=== PATIENT | female | born 1965 | race Caucasian/White ===

== ENCOUNTER 2025-01-17 14:28 | Emergency (ER) | payer MEDICARE, OTHER, SELFPAY ==
--- OUTSIDE RECORDS SUMMARY | 2025-01-17 14:31 | XMS_ITS ---
Author Organization [facility] Building [address] Address [address] [place] [address] Care Team Providers Care Multiple Spindle Router Operator Name Role Phone Sirena Germain NP Unavailable [phone] Rishi Whitaker MD Unavailable [phone] Sidra Mansfield NP Primary Care Provider [phone] Active Problems Problem Noted Date Diagnosed Date Scarring, hypertrophic 09/09/2024 S/P brachioplasty 09/09/2024 Scar irritation 09/09/2024 Vaginal discharge 07/19/2024 Assessment & Plan (07/19/2024 8:21 PM CDT): Pelvic exam completed in office, patient tolerated procedure well. Vaginal swab obtained vaginitis panel, GC, and chlamydia testing ordered. Wet mount side prepared from vaginal swab, clue cells noted on slide. Patient prescribed Flagyl for bacterial vaginosis. Vaginal dryness 07/04/2024 Assessment & Plan (07/19/2024 8:19 PM CDT): Chronic, due to Aromasin use. Patient prescribed Premarin vaginal cream 0.5 g by her oncology to treat her chronic vaginal dryness. Assessment & Plan (07/04/2024 7:58 AM CDT): Chronic, due to Aromasin use. Patient prescribed Premarin vaginal cream 0.5 g by her oncology to treat her chronic vaginal dryness. Chronic pain of both knees 07/04/2024 Assessment & Plan (07/04/2024 7:58 AM CDT): Chronic, patient to continue on Celebrex 200 mg BID PRN. Bilateral knee xrays ordered. Patient to be contacted once xray results are obtained. Primary insomnia 05/28/2024 Assessment & Plan (06/01/2024 4:07 PM CDT): Uncontrolled. Patient to discontinue hydroxyzine 50 mg. Patient to continue nightly sleep hygiene. Patient prescribed Trazodone 50 mg nightly. Patient provided with education on medication administration and potential side effects. Patient to follow up in one month. History of breast cancer 11/30/2023 Assessment & Plan (07/04/2024 7:54 AM CDT): Patient currently taking Aromasin 25 mg daily. Patient currently following with oncology and breast surgeon. Has underwent mastectomy and breast reconstruction. Assessment & Plan (06/01/2024 4:03 PM CDT): Patient currently taking Aromasin 25 mg daily. Patient currently following with oncology and breast surgeon. Has underwent mastectomy and breast reconstruction. Assessment & Plan (11/30/2023 3:35 PM CDT): Patient currently taking Aromasin 25 mg daily. Patient currently following with oncology and breast surgeon. Has underwent mastectomy and breast reconstruction. Murmur 05/01/2023 Personal history of colonic polyps 04/20/2023 Routine medical exam 04/20/2023 Assessment & Plan (06/01/2024 4:05 PM CDT): CBC, CMP, lipid panel ordered. Patient underwent mastectomy and breast reconstruction. Pap last completed: 04/2023 repeat in 2 years. Colonoscopy last completed: 01/2024 Vaccinations: Shingrix, Prevnar, Flu vaccines UTD. Repeat wellness exam in one year. 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 01/08/2023 History of breast reconstruction 01/08/2023 Acquired absence of bilateral breasts and nipple s 01/08/2023 Breast cancer in female 03/27/2022 Iron deficiency anemia 09/28/2021 Malignant neoplasm of lower- inner quadrant of left breast in female, estrogen receptor positive 08/25/2021 Malignant neoplasm of left b reast in female, estrogen receptor positive 05/17/2020 HER2-positive carcinoma of left breast (CMS/HCC) 05/17/2020 Cancer Staging:Clinical: Unsigned Assessment & Plan (05/01/2023 1:58 PM CDT): Patient is stable and followed by Oncology Assessment & Plan (01/23/2023 11:25 AM PHILATELIC CONSULTANT): Patient is currently seeing Oncology and being treated Assessment & Plan (12/12/2021 1:52 PM PHILATELIC CONSULTANT): Followed by oncology Assessment & Plan (10/25/2020 2:00 PM CDT): Patient had bilateral mastectomies currently going through treatment she appears to be in good humor will continue to follow Assessment & Plan (05/24/2020 11:18 AM CDT): Patient is pending bilateral mastectomy at that time it will be determine what treatment should be going through s/p C5-6 and C6-7 ACDF in 04/201904/14/2020 Mild episode of recurrent major depressive disor jacob 03/18/2020 Assessment & Plan (06/01/2024 4:08 PM CDT): Chronic, controlled with Wellbutrin 450 mg daily. Follow up in 6 months. Assessment & Plan (11/30/2023 3:33 PM CDT): Chronic, controlled with Wellbutrin 450 mg and Zoloft 100 mg daily. Follow up in 6 months. Assessment & Plan (01/23/2023 11:24 AM PHILATELIC CONSULTANT): This is in fair control again she has a lot of things going on there is no SI HI as I decreased his Zoloft if I need to bring something on board I will and we did discuss signs and symptoms to monitor for. Assessment & Plan (03/18/2020 2:49 PM PHILATELIC CONSULTANT): Images from the original note were not included. Was doing well on wellbutrin, now not so ggood,w ill increase to 300 in am and 150 pm\\The pharmacologic and nonpharmacologic treatment of anxiety/depression were discusses with the patient. Included was a discussion of the current treatment regimens and their proposed mechanism of action concerning brain chemistry. Discussed the role of counseling as an adjunct to medications should we agree to pursue this. The patient is non-suicidal, and agrees to inform us of any change in this status follow up in 4-6 weeks- sooner if any problems Bilateral carpal tunnel syndrome 01/06/2020 Assessment & Plan (01/06/2020 4:32 PM PHILATELIC CONSULTANT): This is uncontrolled, Seen neurology, failed conservative therapy, had EMG is, sending to Ortho Attention deficit disorder (ADD) without hyperac tivity 01/06/2020 Assessment & Plan (07/04/2024 7:55 AM CDT): Chronic, controlled with Adderall 20 mg daily. Follow up in 6 months. Assessment & Plan (06/01/2024 4:00 PM CDT): Chronic, controlled with Adderall 20 mg daily. Follow up in 6 months. Assessment & Plan (11/28/2023 2:34 PM CDT): Chronic, controlled with Adderall 20 mg daily. Follow up in 6 months. Assessment & Plan (07/20/2021 11:19 AM CDT): Controlled with meds Assessment & Plan (10/25/2020 1:59 PM CDT): Given patient's current cancer treatment with currently not treating the Assessment & Plan (05/24/2020 11:17 AM CDT): This is currently controlled current medications will continue to follow if anxiety persists we may need to consider decreasing the dose or stopping Assessment & Plan (03/18/2020 2:46 PM PHILATELIC CONSULTANT): Will to change medications so she can get at base Assessment & Plan (01/06/2020 4:34 PM PHILATELIC CONSULTANT): This is not totally controlled patient was started on the 30s and it is improving am going to increase her medicine to 40 mg and she will give me an update in 4-6 weeks Osteoarthritis of finger of left hand 09/01/2019 Mucous cyst of digit of left hand 09/01/2019 History of pulmonary embolism 04/07/2019 Assessment & Plan (10/25/2020 2:00 PM CDT): Patient is currently stable with no recurrence will continue to follow Assessment & Plan (05/24/2020 11:18 AM CDT): This is old and patient has not had any recurrence will continue to follow Assessment & Plan (01/06/2020 4:33 PM PHILATELIC CONSULTANT): This was felt to be due to his severe infection last year there has been no recurrence patient is stable will continue to follow Cervical spondylosis with radiculopathy 04/07/19 Assessment & Plan (06/01/2024 4:01 PM CDT): Chronic, pain is currently controlled with Celebrex 200 mg BID, flexeril 10 mg PRN, and gabapentin 600 mg TID. Follow up in 6 months. Assessment & Plan (11/30/2023 3:30 PM CDT): Chronic, pain is currently controlled with Celebrex 200 mg BID, flexeril 10 mg PRN, and gabapentin 600 mg TID. Follow up in 6 months. Fibromyalgia 07/03/2018 Assessment & Plan (07/04/2024 7:55 AM CDT): Chronic, pain is currently controlled with Celebrex 200 mg BID, flexeril 10 mg PRN, and gabapentin 600 mg TID. Follow up in 6 months. Assessment & Plan (06/01/2024 4:01 PM CDT): Chronic, pain is currently controlled with Celebrex 200 mg BID, flexeril 10 mg PRN, and gabapentin 600 mg TID. Follow up in 6 months. Assessment & Plan (11/30/2023 3:31 PM CDT): Chronic, pain is currently controlled with Celebrex 200 mg BID, flexeril 10 mg PRN, and gabapentin 600 mg TID. Follow up in 6 months. Assessment & Plan (05/01/2023 1:57 PM CDT): This is currently controlled will continue to monitor Assessment & Plan (12/12/2021 1:52 PM PHILATELIC CONSULTANT): Flaring and want to try meds Assessment & Plan (07/20/2021 11:18 AM CDT): Encourage exercise Assessment & Plan (05/24/2020 11:17 AM CDT): Patient has been taking the Cymbalta for a long time she is not really sure if it is helping were going to try to slowly taper her off Assessment & Plan (03/18/2020 2:45 PM PHILATELIC CONSULTANT): On numerous medications and seeing specialistm, will wait till work up is over Assessment & Plan (01/06/2020 4:32 PM PHILATELIC CONSULTANT): This appears to be fairly stable will continue to follow patient is taking Cymbalta Assessment & Plan (07/03/2018 11:57 PM CDT): Holding Cymbalta due to renal function. Continue Elavil. Patient advised to discuss with PCP regarding options for fibromyalgia if renal function does not recover. Mild intermittent asthma 07/03/2018 Assessment & Plan (06/01/2024 4:07 PM CDT): Chronic, controlled Symbicort and albuterol inhaler PRN. Assessment & Plan (11/28/2023 2:42 PM CDT): Chronic, controlled Symbicort and albuterol inhaler PRN. Assessment & Plan (05/01/2023 1:57 PM CDT): This is mild/intermittent and controlled with p.r.n. inhalers Assessment & Plan (01/23/2023 11:24 AM PHILATELIC CONSULTANT): This is mild, intermittent and well controlled Assessment & Plan (07/20/2021 11:18 AM CDT): Controlled with as needed inhalers Assessment & Plan (10/25/2020 2:00 PM CDT): This is mild intermittent and well controlled with current meds Assessment & Plan (05/24/2020 11:18 AM CDT): This is currently controlled with p.r.n. inhaler will continue to follow Assessment & Plan (03/18/2020 2:45 PM PHILATELIC CONSULTANT): Mild intermittent inhalers Assessment & Plan (01/06/2020 4:33 PM PHILATELIC CONSULTANT): This is controlled with p.r.n. inhalers Assessment & Plan (07/03/2018 11:56 PM CDT): P.r.n. Albuterol Generalized anxiety disorder 03/26/2018 Assessment & Plan (07/04/2024 7:56 AM CDT): Chronic,improving continue on Wellbutrin 450 mg daily and Trazodone 50 mg nightly. Follow up in 6 months to reassess anxiety symptoms. Assessment & Plan (06/01/2024 4:02 PM CDT): Chronic, uncontrolled to continue on Wellbutrin 450 mg daily. Patient to discontinue Zoloft 100 mg and begin Trazodone 50 mg nightly. Follow up in 1 month to reassess anxiety symptoms. Assessment & Plan (11/28/2023 2:44 PM CDT): Chronic, controlled with Wellbutrin 450 mg and Zoloft 100 mg daily. Follow up in 6 months. Assessment & Plan (05/01/2023 1:57 PM CDT): This is well controlled with no SI HI will continue to monitor Assessment & Plan (01/23/2023 11:23 AM PHILATELIC CONSULTANT): This is not in excellent control because of all patient's healthcare issues she is also upset that she is gained weight some going to decrease her Zoloft to 50 mg daily for 2-3 weeks then every other day if her anxiety and depression get worse I can add something to help her out we had a long discussion about this she verbalized agreement and understanding. There is no SI HI Assessment & Plan (12/12/2021 1:52 PM PHILATELIC CONSULTANT): Increase to 100, no si/hi Assessment & Plan (07/20/2021 11:19 AM CDT): Controlled with meds Assessment & Plan (10/25/2020 1:59 PM CDT): We have tapered her off the Cymbalta she is going to go to every other day for the next week as we bring her back on to some Zoloft which were hope in will work in conjunction with Wellbutrin to improve her anxiety patient is going to update me in a few weeks Assessment & Plan (05/24/2020 11:18 AM CDT): This is increased with recent diagnosis of breast cancer am going to increase her Wellbutrin to 300 of the XL she will give me an update she may use her hydroxyzine as needed I am willing to refill the script Assessment & Plan (03/18/2020 2:45 PM PHILATELIC CONSULTANT): Images from the original note were not included. The pharmacologic and nonpharmacologic treatment of anxiety/depression were discusses with the patient. Included was a discussion of the current treatment regimens and their proposed mechanism of action concerning brain chemistry. Discussed the role of counseling as an adjunct to medications should we agree to pursue this. The patient is non-suicidal, and agrees to inform us of any change in this status follow up in 4-6 weeks- sooner if any problems Assessment & Plan (01/06/2020 4:33 PM PHILATELIC CONSULTANT): This appears to be well controlled, will continue to follow Assessment & Plan (07/03/2018 11:56 PM CDT): Continue Elavil. Patient is on Cymbalta however due to renal function will need to hold. Sleep apnea Assessment & Plan (06/01/2024 1:55 PM CDT): Chronic, controlled with nightly CPAP use. Assessment & Plan (11/28/2023 2:37 PM CDT): Chronic, controlled with nightly CPAP use. Assessment & Plan (01/23/2023 11:24 AM PHILATELIC CONSULTANT): Continue CPAP Assessment & Plan (03/18/2020 2:46 PM PHILATELIC CONSULTANT): Continue c-pap Assessment & Plan (01/06/2020 4:33 PM PHILATELIC CONSULTANT): Patient is currently sleeping on CPAP Current Treatment and Therapy Plans No current plan information found. Past Treatment and Therapy Plans Line Care Plan Name Start Date Discontinue Date Treatment Medications Discontinue Reason Plan Provider IV Maintenance Therapy Plan 09/07/2020 01/10/2023 No medications scheduled. Orders Jeana Linton NP Oncology Chemotherapy Treatment Plan Name Start Date Discontinue Date Treatment Medications Discontinue Reason Plan Provider Cycles PACLItaxel / Trastuzumab Weekly x 4 Cycles then Trastuzumab Q21 Days - Breast 1 09/19/2021 PACLItaxel (TAXOL) IVPB in 250 mLtrastuzumab (HERCEPTIN) IVPB Therapy Complete Mega River Jr., MD 17 of 17 cycles started Oncology Supportive Care Therapy Plan Plan Name Start Date Discontinue Date Treatment Medications Discontinue Reason Plan Provider IV MAINTENANCE THERAPY PLAN 09/27/2021 04/07/2022 No medications scheduled. Therapy Complete Mega River Jr., MD IV MAINTENANCE THERAPY PLAN 08/31/2020 09/27/2021 No medications scheduled. Therapy Complete Gomez Larsen MD PhD Lifetime Dose Tracking * Chemical Lifetime Dose Automatic Entry Manual Entr y Fluoro Time 2.229 minutes 2.229 minutes 0 minutes Air kerma at the reference point (Ka,r) 11.814 mGy 1 1.814 mGy 0 mGy DLP 2,056 mGycm 2,056 mGycm 0 mGycm Resolved Problems Problem Noted Date Diagnosed Date Resolved Date Encounter for screening colonoscopy 04/20/2023 11/30/2023 Severe obesity (BMI 35.0-35. 9 with comorbidity) 04/30/2022 11/28/2023 Breast asymmetry 08/26/2021 11/28/2023 Acute non-recurrent maxillary sinusitis 07/20/2021 11/30/2023 Sore in nose 10/25/2020 11/28/2023 Routine general medical exam ination at a [facility] 01/05/2020 11/30/2023 Assessment & Plan (05/01/2023 1:58 PM CDT): Healthcare maintenance updated Assessment & Plan (01/23/2023 11:24 AM PHILATELIC CONSULTANT): Healthcare maintenance updated, colonoscopy ordered, please schedule Pap smear Assessment & Plan (10/25/2020 2:00 PM CDT): Healthcare maintenance updated Assessment & Plan (01/06/2020 4:33 PM PHILATELIC CONSULTANT): Healthcare maintenance updated, immunizations discussed, mammogram ordered. Patient will schedule a Pap smear Left hand pain 09/01/2019 11/30/2023 Hyponatremia 07/04/2018 01/06/2020 Assessment & Plan (07/04/2018 12:11 AM CDT): Suspect it is due to poor p.o. Intake and or pain. Patient is receiving IV fluids. Will continue to monitor. Bandemia 07/03/2018 06/01/2024 Assessment & Plan (07/03/2018 11:58 PM CDT): No obvious sources of infection other than possible underlying pneumonia. Patient also has toxic granulation. Blood cultures were drawn. Will continue with antibiotics for the time being. Acute renal failure 07/03/2018 11/30/19 Assessment & Plan (10/25/2020 1:59 PM CDT): This is slowly improving we have her off all anti-inflammatories will continue to monitor Assessment & Plan (05/24/2020 11:17 AM CDT): This is now resolved will continue to follow Assessment & Plan (01/06/2020 4:31 PM PHILATELIC CONSULTANT): This has resolved patient is stable will continue to follow Assessment & Plan (07/04/2018 12:23 AM CDT): Suspected to be acute. Patient denies any prior history of kidney disease. Patient has been taking ibuprofen daily for years for pain. Patient is receiving IV fluids. Will check a PVR and UA with micro. Will order ultrasound of the kidneys. Will consult Nephrology. Avoid any nephrotoxins. BMI 32.0-32.9,adult 03/26/2018 11/30/19 Sepsis 11/28/2023
--- OUTSIDE RECORDS SUMMARY | 2025-01-17 14:31 | XMS_ITS | Encounter Summary ---
Author Organization [facility] Healthcare Address [address] [place] [address] Care Team Providers Care Hat Checker Name Role Phone Sirena Germain AUDIOVISUAL PRODUCTION SPECIALIST Unavailable [phone] Dain Mckeon Primary Care Provider [phone] Gomez Larsen MD PhD Unavailable [phone] Perico River MD, Mega Unavailable [phone] Jeana Linton AUDIOVISUAL PRODUCTION SPECIALIST Unavailable [phone] Rishi Whitaker MD Unavailable [phone] Sidra Mansfield AUDIOVISUAL PRODUCTION SPECIALIST Primary Care Provider [phone] Sidra Mansfield AUDIOVISUAL PRODUCTION SPECIALIST Primary Care Provider [phone] Encounter Details Date Type Department Care Team (Late st Contact Info) Description 10/17/2019 Telephone [facility] [address] [place] [address] Antonio Taylor, RT Social History Tobacco Use Types Packs/Day Years Used Date Smoking Tobacco: Never Smokeless Tobacco: Never Alcohol Use Standard Drinks/Week Comments Yes 0 (1 standard drink = 0.6 oz pur e alcohol) occassional PHQ-2 Answer Date Recorded PHQ-2 Score 1 09/27/2018 Comments No Sex and Gender Information Value Date Recorded Sex Assigned at Not on file Legal Sex Female 4:12 PM WORKERS COMPENSATION CLAIMS SPECIALIST Gender Identity Female 05/18/2020 5:32 PM CDT Sexual Orientation Straight 12/23/2019 3: 46 PM WORKERS COMPENSATION CLAIMS SPECIALIST documented as of this encounter Plan of Treatment Not on file documented as of this encounter Visit Diagnoses Not on filedocumented in this encounter Care Teams Hat Checker Relationship Specialty Start Date End Date Dain Mckeon PA [address] [place] [address] PCP - General Family Medicine 01/06/20 11/18/23 Sidra Mansfield, AUDIOVISUAL PRODUCTION SPECIALIST [address] [place] [address] [id number] PCP - General Family Medicine 11/19/23 12/24/23 Sidra Mansfield, AUDIOVISUAL PRODUCTION SPECIALIST [address] [place] [address] [id number] PCP - General Family Medicine 12/25/23 Sirena Germain AUDIOVISUAL PRODUCTION SPECIALIST [address] [place] [address] [place] [address] 04/18/18 Gomez Larsen MD PhD [address] [place] [address] [place] [address] Medical Oncologist/Agricultural Service Technician Medical Oncology 08/10/20 02/23/21 Mega River Jr., MD [address] [place] [address] [place] [address] Medical Oncologist/Agricultural Service Technician Medical Oncology 02/24/21 03/28/22 Jeana Linton, ALICIA [address] [place] [address] [id number] Nurse Practitioner Medical Oncology 03/29/22 08/10/22 Rishi Whitaker MD [address] [place] [address] MEDICAL ONCOLOGY, [place] [id number] Consulting Physician Hematology and Oncology 08/11/22 documented as of this encounter
--- OUTSIDE RECORDS SUMMARY | 2025-01-17 14:31 | XMS_ITS | Clinical Summary ---
Author Organization [facility] Medical Office Building B Address [address] [place] [address] Care Team Providers Care Backwinder Name Role Phone Sirena Germain NP Unavailable [phone] Rishi Whitaker MD Unavailable [phone] Sidra Mansfield NP Primary Care Provider [phone] Allergies Active Allergy Reactions Criticality Noted Date Comments Adhesive Blisters,Itching,Rash,Redness High 2020 Medications fluticasone propionate (FLONASE) 50 mcg/actuation nasal spray Administer 1 spray into each nostril 2 (two) times a day 1 Inhaler 1 019 Active Additional Information Patient taking differently:1 spray each nostrilDaily (early AM), Indications: Allergic Conjunctivitis, Allergic Rhinitis, Informant: Self, Reported on 10/09/2024 Symbicort 160-4.5 mcg/actuation inhaler INHALE 2 PUFFS TWICE A DAY 10.2 each 024 Active Additional Information Patient not taking.Reported on 10/09/2024 Eclipse Syringe 3 mL 25 gauge x 1 syringe For b12 shot 024 Active celecoxib (CeleBREX) 200 mg capsule TAKE 1 CAPSULE BY MOUTH TWICE A DAY 60 capsule 3 024 Active Additional Information Patient taking differently:200 mg oral 2 times daily,Uses with back pain, last used 6 mo. ago, Indications: Pain, Informant: Self, Reported on 10/09/2024 estrogens, conjugated, (PREMARIN) vaginal creamIndications: Atrophic Vaginitis associated with Menopause Insert 0.5 g into the vagina as needed (ATROPHIC VAGINITIS) Take for 1 week every 6 weeks 30 g 3 Active Additional Information Patient taking differently:0.5 g vaginal As needed, ATROPHIC VAGINITIS,Hasn't used in many months but is prescribed, Indications: Atrophic Vaginitis associated with Menopause, Informant: Self, Reported on 10/09/2024 tirzepatide, weight loss, (ZEPBOUND) 15 mg/0.5 mL pen injectorIndicatio ns:obstructive sleep apnea syndrome,weight loss management Inject 0.5 mL (15 mg total) under the skin every 7 days Wednesdays Active exemestane (AROMASIN) 25 mg tabletIndications :Estrogen jm Take 1 tablet (25 mg total) by mouth director of early childhood before breakfast 30 tablet 11 Active Additional Information Patient taking differently:25 mg oral Daily (early AM),2 weeks on & 2 weeks off, Indications: Estrogen jm, Informant: Self, Reported on 10/09/2024 cyclobenzaprine (FLEXERIL) 10 mg tablet TAKE 1 TABLET(10 MG) BY MOUTH EVERY 8 HOURS NEEDED FOR MUSCLE SPASMS 90 tablet Active Additional Information Patient taking differently: 10 mg oral 3 times daily PRN, muscle spasms, Indications: Muscle Spasm, Informant: Self, Reported on 10/09/2024 albuterol HFA (PROVENTIL HFA,VENTOLIN HFA,PROAIR HFA) 90 mcg/actuation inhaler INHALE 1 PUFF BY MOUTH EVERY 4 HOURS NEEDED FOR WHEEZING OR SHORTNESS OF BREATH 8.5 g 3 Active Additional Information Patient taking differently: 2 puff inhalation Every 6 hours PRN, wheezing, shortness of breath, Hasn't used in 2 months, Informant: Self, Reported on 10/09/2024 acetaminophen (TYLENOL) 500 mg tablet Take 2 tablets (1,000 mg total) by mouth every 6 (six) hours as needed for pain 30 tablet 1 Active ibuprofen (ADVIL,MOTRIN) 600 mg tablet Take 1 tablet (600 mg total) by mouth every 6 (six) hours as needed for pain 30 tablet 1 Active Additional Information Patient not taking.Reported on 10/09/2024 oxyCODONE (ROXICODONE) 5 mg immediate release tabletIndications :Pain Take 1 tablet (5 mg total) by mouth every 4 (four) hours as needed for pain 6 tablet Active Additional Information Patient not taking.Reported on 10/09/2024 senna-docusate (PERICOLACE) 8.6-50 mg Take 1 tablet by mouth daily 7 tablet Active ondansetron ODT (ZOFRAN-ODT) 4 mg disintegrating tablet Take 1 tablet (4 mg total) by mouth every 8 (eight) hours as needed for nausea or vomiting 20 tablet Active buPROPion XL (WELLBUTRIN XL) 300 mg 24 hr tabletIndications :Anxiety with Depression Take 1 tablet (300 mg total) by mouth every morning 450 mg total 90 tablet 1 Active buPROPion XL (WELLBUTRIN XL) 150 mg 24 hr tabletIndications :Anxiety with Depression Take 1 tablet (150 mg total) by mouth every morning 450 mg total 90 tablet 1 Active dextroamphetamine -amphetamine (ADDERALL) 20 mg tablet Take 1 tablet (20 mg total) by mouth daily 30 tablet Active hydrOXYzine (ATARAX) 50 mg tabletIndications :anxiety Take 0.5 tablets (25 mg total) by mouth every 8 (eight) hours as needed for itching or allergies 90 tablet 1 Active traZODone (DESYREL) 100 mg tablet Take 1 tablet (100 mg total) by mouth nightly as needed for sleep 90 tablet 1 2025 Active cyanocobalamin (Vitamin B-12) 1,000 mcg/mL injection Inject 1 mL (1,000 mcg total) into the muscle as instructed every 30 (thirty) days 1 mL 3 Active gabapentin (NEURONTIN) 600 mg tabletIndications :Neuropathic Pain Take 1 tablet (600 mg total) by mouth 3 (three) times a day 270 tablet 1 Active vitamin E (AQUASOL E) 100 unit capsule Take 180 Units by mouth nightly 2022 Discontinued(R eorder) cyanocobalamin (Vitamin B-12) 1,000 mcg/mL injection Inject 1 mL (1,000 mcg total) into the muscle as instructed every 30 (thirty) days 3 mL 3 024 2024 Discontinued gabapentin (NEURONTIN) 600 mg tabletIndications :Neuropathic Pain Take 0.5 tablets (300 mg total) by mouth 3 (three) times a day 270 tablet 1 025 2024 Discontinued(R eorder) cyanocobalamin (Vitamin B-12) 1,000 mcg/mL injection ADMINISTER 1 ML(1000 MCG) IN THE MUSCLE EVERY 30 DAYS DIRECTED 3 mL 3 025 2024 Discontinued(R eorder) Active Problems Problem Noted Date Diagnosed Date [...] Oncology Assessment & Plan (01/23/2023 11:25 AM DIETITIAN TEACHING): Patient is currently seeing Oncology and being treated Assessment & Plan (12/12/2021 1:52 PM DIETITIAN TEACHING): Followed by oncology Assessment & Plan (10/25/2020 [...] months. Assessment & Plan (01/23/2023 11:24 AM DIETITIAN TEACHING): This is in fair control again she has a lot of things going on there is no SI HI as I decreased his Zoloft if I need to bring something on board I will and we did discuss signs and symptoms to monitor for. Assessment & Plan (03/18/2020 2:49 PM DIETITIAN TEACHING): Images from the original note were not [...] 01/06/2020 Assessment & Plan (01/06/2020 4:32 PM DIETITIAN TEACHING): This is uncontrolled, Seen neurology, failed conservative [...] stopping Assessment & Plan (03/18/2020 2:46 PM DIETITIAN TEACHING): Will to change medications so she can get at base Assessment & Plan (01/06/2020 4:34 PM DIETITIAN TEACHING): This is not totally controlled patient was [...] follow Assessment & Plan (01/06/2020 4:33 PM DIETITIAN TEACHING): This was felt to be due to [...] monitor Assessment & Plan (12/12/2021 1:52 PM DIETITIAN TEACHING): Flaring and want to try meds Assessment & Plan (07/20/2021 11:18 AM CDT): Encourage exercise Assessment & Plan (05/24/2020 11:17 AM CDT): Patient has been taking the Cymbalta for a long time she is not really sure if it is helping were going to try to slowly taper her off Assessment & Plan (03/18/2020 2:45 PM DIETITIAN TEACHING): On numerous medications and seeing specialistm, will wait till work up is over Assessment & Plan (01/06/2020 4:32 PM DIETITIAN TEACHING): This appears to be fairly stable will [...] inhalers Assessment & Plan (01/23/2023 11:24 AM DIETITIAN TEACHING): This is mild, intermittent and well controlled Assessment & Plan (07/20/2021 11:18 AM CDT): Controlled with as needed inhalers Assessment & Plan (10/25/2020 2:00 PM CDT): This is mild intermittent and well controlled with current meds Assessment & Plan (05/24/2020 11:18 AM CDT): This is currently controlled with p.r.n. inhaler will continue to follow Assessment & Plan (03/18/2020 2:45 PM DIETITIAN TEACHING): Mild intermittent inhalers Assessment & Plan (01/06/2020 4:33 PM DIETITIAN TEACHING): This is controlled with p.r.n. inhalers Assessment [...] monitor Assessment & Plan (01/23/2023 11:23 AM DIETITIAN TEACHING): This is not in excellent control because [...] HI Assessment & Plan (12/12/2021 1:52 PM DIETITIAN TEACHING): Increase to 100, no si/hi Assessment & [...] script Assessment & Plan (03/18/2020 2:45 PM DIETITIAN TEACHING): Images from the original note were not [...] problems Assessment & Plan (01/06/2020 4:33 PM DIETITIAN TEACHING): This appears to be well controlled, will [...] use. Assessment & Plan (01/23/2023 11:24 AM DIETITIAN TEACHING): Continue CPAP Assessment & Plan (03/18/2020 2:46 PM DIETITIAN TEACHING): Continue c-pap Assessment & Plan (01/06/2020 4:33 PM DIETITIAN TEACHING): Patient is currently sleeping on CPAP Resolved Problems Problem Noted Date Diagnosed Date Resolved Date Encounter for screening colonoscopy 04/20/2023 11/30/2023 Severe obesity (BMI 35.0-35. 9 with comorbidity) 04/30/2022 11/28/2023 Breast asymmetry 08/26/2021 11/28/2023 Acute non-recurrent maxillary sinusitis 07/20/2021 11/30/2023 Sore in nose 10/25/2020 11/28/2023 Routine general medical exam ination at a health care facility 01/05/2020 11/30/2023 Assessment & Plan (05/01/2023 1:58 PM CDT): Healthcare maintenance updated Assessment & Plan (01/23/2023 11:24 AM DIETITIAN TEACHING): Healthcare maintenance updated, colonoscopy ordered, please schedule Pap smear Assessment & Plan (10/25/2020 2:00 PM CDT): Healthcare maintenance updated Assessment & Plan (01/06/2020 4:33 PM DIETITIAN TEACHING): Healthcare maintenance updated, immunizations discussed, mammogram ordered. [...] follow Assessment & Plan (01/06/2020 4:31 PM DIETITIAN TEACHING): This has resolved patient is stable will [...] nephrotoxins. BMI 32.0-32.9,adult 03/26/2018 11/30/19 Sepsis 11/28/2023 Encounters Date Type Department Care Team Description 01/07/2025 Orders Only [facility] [address] [place] [address] [address] [place] [address] Sidra Mansfield, LOOM FIXER SUPERVISOR 12/05/2024 Telephone [facility] [address] [place] [address] [address] [place] [address] Sidra Mansfield NP 11/06/2024 1:00 PM CDT Office Visit [facility] Orth[facility] Sports Medicine [address] [facility] [address] [place] [address] Kyle Chaparro DO Primary osteoarthritis of left knee (Primary Dx); Primary osteoarthritis of right knee 11/04/2024 1:15 PM CDT Office Visit [facility] 6th [place] [address] [place] [address] Nik Grissom MD Scar irritation (Primary Dx); Scarring, hypertrophic from Last 3 Months Immunizations Immunization Administration Dates Next Due Influenza, Quadrivalent, Elida l Culture-based MDCK, Antibiotic Free, Intramuscular 03/21/2021 Influenza, Quadrivalent, Elida l Culture-based MDCK, Preservative Free, Antibiotic Free, Intramuscular 10/27/2022 Influenza, Quadrivalent, Rec ombinant, Egg Free, Preservative Free, Intramuscular 11/21/2019 Influenza, Quadrivalent, Spl it, Intramuscular 09/26/2017 Influenza, Quadrivalent, Spl it, Preservative Free, Intramuscular 11/21/2021,10/16/2018,11/18/2017 Influenza, Trivalent, Cell Culture-based MDCK, Preservative Free, Antibiotic Free, Intramuscular 11/15/2023 Influenza, Trivalent, Preser vative Free, Intramuscular 11/18/2015 Influenza, Unspecified 11/13/2023,2022,11/21/2021,03/21 Pfizer SARS-CoV-2 Monovalent Vaccination (12+ Yrs) PURPLE 10/30/2020,05/07/2020,04/09/2020 Pneumococcal Conjugate Pcv20 11/21/2021 Tdap 02/02/2022 ZOSTER Recombinant 06/11/2021,03/21/2021 Surgical History Surgery Date Site/Laterality Comments POLYPECTOMY 02/05/2018 - 02/04/2019 COLONOSCOPY 02/05/2018 - 02/04/2019 JOHN-EN-Y PROCEDURE 02/05/2002 - 02/04/2003 at [facility] gastric bypass TUMOR EXCISION Bilateral benign bilat breasts--fibrous cysts/unknown dates/most recent 2002 SHOULDER SURGERY 02/05/2014 - 02/04/2015 rotator cuff US GUIDED THORACENTESIS 07/09/2018 N/A SPINAL FUSION 04/07/2019 Cervical BREAST BIOPSY Right surgical benign bx x 2/unknown date per pt/most recent 2002 BREAST BIOPSY 02/05/1978 - 02/04/1979 Left surgical benign bx, age 13 CARPAL TUNNEL RELEASE 02/06/2020 - 02/04/2021 FINGER SURGERY 02/05/2018 - 02/04/2019 Left Pinky finger - pin in tip BREAST LUMPECTOMY 02/06/2012 - 02/04/2013 MASTECTOMY 02/06/2020 - 02/04/2021 Bilateral OTHER SURGICAL HISTORY 02/05/2021 - 02/04/2022 Morena Flap HERNIA REPAIR 02/05/2021 - 02/04/2022 COLON BIOPSY 04/05/2018 - 05/05/2018 REVISION RECONSTRUCTED BREAST 03/08/2022 - 04/04/2022 COSMETIC SURGERY Morena flap in 2021 FRACTURE SURGERY 2015 LASIK 2002 BARIATRIC SURGERY Rou-en-y gastric bypass 2002 ABDOMINAL SURGERY Morena flap 2021 Medical History Medical History Date Comments Anemia Colon polyp Depression Fibromyalgia Asthma Peripheral neuropathy hands or f eet Osteoarthritis Neurofibromatosis (HCC) Motion sickness PONV (postoperative nausea and vomiting) Cervical spondylosis History of pneumonia Pulmonary embolism 06/2018 Sleep apnea Arthritis Anxiety Chronic kidney disease Pneumonia Bronchitis Breast cancer (HCC) Diabetes mellitus 01/22/2023 Family History Medical History Relation Name Comments Alzheimer's disease Father Lawson Castro Asthma Father Lawson Castro Cancer Father Lawson Castro Depression Father Lawson Castro Prostate cancer Father Lawson Castro Colon cancer Maternal Grandmother Arthritis Mother Janna Almendarezs Asthma Mother Janna Almendarezs Depression Mother Janna Castro Diabetes Mother Janna Castro Hearing loss Mother Janna Almendarezs Heart disease Mother Janna Almendarezs Hypertension Mother Janna Almendarezs Obesity Mother Janna Almendarezs Breast cancer Mother's Sister x2 Asthma Sister 1 shyann Breast cancer Sister 1 shyann Cancer Sister 1 shyann Diabetes Sister 1 shyann Hypertension Sister 2 Shyann Stagner Obesity Sister 2 Shyann Stagner Anesthesia problems Neg Hx Lung disease Neg Hx Mental illness Neg Hx Relation Name Status Comments Father Lawson Castro (Age 86) Maternal Grandmother Mother Janna Castro Alive Mother's Sister x2 Sister 1 shyann Alive Sister 2 Shyann Hudson Social History Tobacco Use Types Packs/Day Years Used Date Smoking Tobacco: Never Smokeless Tobacco: Never Tobacco Cessation:Counseling Given: Not Answered Alcohol Use Standard Drinks/Week Comments Not Currently 0 (1 standard drink = 0.6 oz pur e alcohol) occassional PHQ-2 Answer Date Recorded PHQ-2 Total Score (If total score is 3 or more points, staff should administer the PHQ-9) 0 05/28/2024 AUDIT-C Answer Date Recorded Q1: How often do you have a drink containing alcohol? Never 09/29/2024 Q2: How many drinks containi ng alcohol do you have on a typical day when you are drinking? Patient does not drink Q3: How often do you have si x or more drinks on one occasion? Never 09/29/2024 Personal Safety Answer Date Recorded Have you ever been in or are you currently in a harmful physical or emotional relationship or is someone making you feel afraid or unsafe? Denies 09/29/2024 Comments No Sex and Gender Information Value Date Recorded Sex Assigned at Not on file Legal Sex Female 4:12 PM DIETITIAN TEACHING Gender Identity Female 05/18/2020 5:32 PM CDT Sexual Orientation Straight 12/23/2019 3: 46 PM DIETITIAN TEACHING Obstetrics History Para Term AB IAB SAB Ectopic Multiple Livin g Live Births 0 0 0 0 0 0 0 0 Last Filed Vital Signs Vital Sign Reading Time Taken Comments Blood Pressure 132/84 10/09/2024 10:49 AM CDT Pulse 75 10/09/2024 10:49 AM CDT Temperature 36.5 C (97.7 F) 09/29/2024 5:20 PM CDT Respiratory Rate 23 09/29/2024 6:30 PM CDT Oxygen Saturation 100% 10/09/2024 10:49 AM CDT Inhaled Oxygen Concentration - - Weight 78.3 kg (172 lb 9.6 oz) 10/09/2024 10:49 AM CDT Height 165.1 cm (5' 5) 10/09/2024 10:49 AM CDT Body Mass Index 28.72 10/09/2024 10:49 AM CDT Plan of Treatment Health Maintenance Due Date Last Done Comments Hepatitis B Screening 1982 Influenza Vaccine (#1) 2024 , 11/13/2023, 10/27/2022, Additional history exists Depression Screening 05/28/2025 05/28/2024, 05/01/2023, 01/23/2023, Additional history exists Regular Well Visit/Exam 18-64 05/28/2025, 05/01/2023, 01/23/2023, Additional history exists Cervical Cancer Screening 07/02/20252024, 07/02/2024, 05/01/2023, Additional history exists Colon Cancer Screening-Colonoscopy 01/06/2029 01/07/2024, 01/07/2024, 04/29/2018 DTaP/Tdap/Td Vaccine (2 - Td or Tdap) 02/03/2032 02/02/2022 Breast Cancer Screening-Mammogram Discontinued 03/10/2020, 02/10/2019, 10/29/2017, Additional history exists Zoster Vaccine Completed 06/11/2021, 03/21/2021 Pneumococcal vaccine <65 Completed 11/21/2021 Covid-19 Vaccine Discontinued 10/27/2022, , 06/11/2021, Additional history exists Hepatitis C Screening Completed 03/20/2023 Colon Cancer Screening-CT Colonography Discontinued 01/07/2024, 01/07/2024, 04/29/2018 Colon Cancer Screening-DNA Stool Discontinued 01/07/2024, 01/07/2024, 04/29/2018 Colon Cancer Screening-FIT Discontinued 01/06, 01/07/2024, 04/29/2018 Colon Cancer Screening-Sigmoidoscopy Discontinued 01/07/2024, 01/07/2024, 04/29/2018 Medical Devices Implanted Type Area Feller Seam Operator Device Identifier Shelf Expiration Date Model / Serial / Lot Preethi Spine [id number] Virgilio-C 5-7mm Level 2 Lock Spine Standard Plate Bone - [id number] Implanted:Qty: 1 on 04/07/2019 by Johnny Mari MD at [facility] N/A: Vertebrae [employer]i [employer] [id number] 08/06/2023 [id number] / / [id number] Preethi [employer] [id number] Virgilio-C Vertebridge 17x5.2-8mm 7d Lordotic 14mm Taper Cage .71cc - [id number] Implanted:Qty: 1 on 04/07/2019 by Johnny Mari MD at [facility] N/A: Vertebrae [employer] [id number] 06/06/2023 [id number] / / [id number] Preethi Spine [id number] Virgilio-C 5-7mm Level 2 Lock Spine Standard Plate Bone - [id number] Implanted:Qty: 1 on 04/07/2019 by Johnny Mari MD at [facility] N/A: Vertebrae [employer]eth[employer] [id number] 08/06/2023 [id number] / / [id number] Preethi [employer] Inc [id number] Virgilio-C Vertebridge 17x3.2-6mm 7d Lordotic 14mm Taper Cage .52cc - [id number] Implanted:Qty: 1 on 04/07/2019 by Johnny Mari MD at [facility] N/A: Vertebrae [employer]ethi [employer] Inc [id number] 10/06/2022 [id number] / / [id number] Arthrex Inc Ar-8725-20h Compression Ft 2.5mm 20mm Compression Self Tap Cannulated Hex 1.5 - [id number] Implanted:Qty: 1 on 10/14/2019 by Godfrey Myers III, MD at [facility] Left: Fingers Arthrex Inc AR-8725-2 0H / / Description:Small left finge r Seedpost & Seedpapers KTM Advance Box Elder Microvascular 3mm Ring Pin Protective Cover Jaw Assembly Latex Free [id number] - [id number] Implanted:Qty: 1 on 08/25/2021 by Nik Grissom MD at [facility] Right: Breast Synovis KTM Advance [id number] 11/26/2025 [id number] / / [id number] Phasix Mesh Implanted:Qty: 1 on 08/25/2021 by Nik Grissom MD at [facility] Right: Abdomen [employer] 06/02/2022 / / [id number] Description:PHASIX MESH (FUL LY RESORBABLE FOR SOFT TISSUE) 4.5 X 11CM LOT: [id number] REF: [id number] BARD DAVOL [employer]ical. Synovis [employer] [place] Box Elder Microvascular 2.5mm Ring Pin Protective Cover Jaw Assembly Latex Free [id number] - [id number] Implanted:Qty: 1 on 08/25/2021 by Nik Grissom MD at [facility] Advanced [facility] Left: Breast Seedpost & Seedpapers [employer] [place] [id number] 02/22/2026 [id number] / / [id number] Davol Inc/C R Bard Phasix Sepra 4x3in Monofilament Resorbable Rectangle Mesh [id number] - [id number] Implanted:Qty: 1 on 03/27/2022 by Nik Grissom MD at [facility] Advanced [facility] Abdomen Davol Inc/C R Bard [id number] / / [id number] Surgimend [id number] Dry Sheet Flat Rectangle Matrix Tissue [id number] - [id number] Implanted:Qty: 1 on 03/27/2022 by Nik Grissom MD at [facility] Abdomen Drop Messages [id number] / / Procedures Procedure Name Priority Date/Time Associated Diagnosis Comments DE ARTHROCENTESIS ASPIR&/INJ MAJOR JT/BURSA W/O US Routine 11/06/2024 1:00 PM CDT Primary osteoarthritis of left knee DE ARTHROCENTESIS ASPIR&/INJ MAJOR JT/BURSA W/O US Routine 11/06/2024 1:00 PM CDT Primary osteoarthritis of right knee PAP AND HIGH RISK HPV, REFLEX TO GENOTYPING Routine 07/02/2024 11:29 AM CDT Screening for cervical cancer COLONOSCOPY Routine 01/07/2024 HEPATITIS C ANTIBODY Routine 03/20/2023 12:27 PM DIETITIAN TEACHING Need for hepatitis C screening test SCREENING MAMMOGRAM BILATERAL W [place]N Schedule Routine, Read Routine (OP Routine) 03/10/2020 2:18 PM DIETITIAN TEACHING Encounter for screening mammogram for malignant neoplasm of breast from Last 3 Months or Most Recently Relevant to Health Maintenance Results * DE ARTHROCENTESIS ASPIR&/INJ MAJOR JT/BURSA W/O US (11/06/2024 1:00 PM CDT) Narrative Kyle Chaparro DO - 11/06/2024 1:00 PM CDT Kyle Chaparro DO 11/06/2024 1:26 PM Large Joint (Hip, Knee, Shoulder) Injection: L knee Performed by: Kyle Chaparro DO Authorized by: Kyle Chaparro DO Large Joint Injection/Aspiration: Consent Given by: Patient Verbal consent obtained: Yes Supporting Documentation: Indications: Pain Procedure Details: Location: Knee Site: L knee Prep: patient was prepped and draped in usual sterile fashion Needle Size: 22 G Approach: Anterolateral Ultrasound guided: No Fluroscopic guidance: No Medications: 4 mL lidocaine 10 mg/mL (1 %); 80 mg triamcinolone 40 mg/mL Aspirate amount (mL): 0 Patient tolerance: Patient tolerated the procedure well with no immediate complications us Kyle Chaparro DO IN CLINIC/BEDSIDE ORDERABLES F inal Result * DE ARTHROCENTESIS ASPIR&/INJ MAJOR JT/BURSA W/O US (11/06/2024 1:00 PM CDT) Narrative Kyle Chaparro DO - 11/06/2024 1:00 PM CDT Kyle Chaparro DO 11/06/2024 1:26 PM Large Joint (Hip, Knee, Shoulder) Injection: R knee Performed by: Kyle Chaparro DO Authorized by: Kyle Chaparro DO Large Joint Injection/Aspiration: Consent Given by: Patient Verbal consent obtained: Yes Supporting Documentation: Indications: Pain Procedure Details: Location: Knee Site: R knee Needle Size: 22 G Approach: Anterolateral Ultrasound guided: No Fluroscopic guidance: No Medications: 4 mL lidocaine 10 mg/mL (1 %); 80 mg triamcinolone 40 mg/mL Aspirate amount (mL): 0 Patient tolerance: Patient tolerated the procedure well with no immediate complications us Kyle Chaparro DO IN CLINIC/BEDSIDE ORDERABLES F inal Result * Pap and High Risk HPV and Genotyping (Cytology Component) (07/02/2024 11:29 AM CDT) Thin prep (Pap test) 07/02/2024 11:29 AM CDT 07/03/2024 5:19 AM CDT Narrative PATHOLOGY [facility] - 07/08/2024 3:21 PM CDT EPIC results best viewed via link to PDF [facility] [place] [address] Note to Patients: This report may contain a detailed description of human tissue sent by a health care provider to the laboratory for pathologic evaluation. The content of this report is essential for diagnosis and may provide important critical findings. This information may be unfamiliar to patients to review without a medical professional present. It is advised that the patient review this report in the presence of a health care provider who can answer questions and explain the details. CYTOPATHOLOGY REPORT FINAL Patient Name: ELISEO MENESES Gender: Enrico : 1965 (Age: 58) Address: [address] [place] [id number] [facility] #: [id number] Service: DEFAULT Location: Patient Type: [facility] SPECIMEN Taken: 07/02/2024 Received: 07/03/2024 Accessioned: 07/03/2024 Reported: 07/08/2024 Physician(s): Sidra Mansfield NP FINAL INTERPRETATION SOURCE OF SPECIMEN Liquid based Thin Prep pap with HPV: STATEMENT OF ADEQUACY - Unsatisfactory specimen - Specimen processed and evaluated, but unsatisfactory due to obscuring inflammation Comments (Normal-Negative for High Risk HPV) HPV HR 16- Not detected HPV HR 18-Not detected HPV HR non 16/18- Not detected Interpretive Data Nucleic acid amplification for detection of high-risk Human Papilloma virus (HPV) is performed by the Fred Caroline 6800 HPV test. This assay specifically detects HPV- 16 and HPV-18 genotypes. The following HPV genotypes are detected as high-risk HPV: HPV-31, 33, 35, 39, 45, 51, 52, 56, 58, 59, 66, and 68. This assay has been approved by the [place] Food and Drug Administration for detection of HPV in cervical specimens collected by a physician using an endocervical brush/spatula or cervical broom and placed in the ThinPrep Pap Test PreservCyt collection containers. The performance characteristics of this test have been verified by the [facility] Molecular Infectious Disease laboratory. Correlate with reported cytology results, as applicable. Interpretive data last revised 22 This specimen has been rescreened in accordance with this laboratory's Food Technology Teacher Program. rks/07/08/2024 15:21 HAYLEE Aguilar(ASCP) Report Electronically Reviewed and Signed Out By HAYLEE Multani(ASCP), [facility] 07/08/2024 15:21:23 Cervicovaginal Cytology (Pap Test) Disclaimer: The Pap test is a screening test used to detect cervical cancer and its precursors; it is not a diagnostic procedure. False negative and false positive results do occur. Pap test results should be interpreted in the context of pertinent clinical information and biopsy results as indicated. [facility] Clinical Laboratory Improvement Amendments (CLIA) mandate that cytologic and histologic results be correlated for laboratory quality assurance nurse & improvement standards. FOR ALL HIGH-GRADE CASES we request submission of follow-up histological material and/or reports that have not been previously provided so that we may fulfill said required standards. Gross Description A. Liquid based Thin Prep pap with HPV: Cervical/vaginal - Screening ThinPrep Clinical Diagnosis and History Last Menstrual Period: menopause The patient is a 58 year old female with screening for cervical cancer. Report Images and scanned documents, if included only viewable in PDF version The performance characteristics of some immunohistochemical stains, in-situ hybridization and fluorescence in-situ hybridization tests and immunophenotyping by flow cytometry cited in this report (if any) were determined by the Surgical Pathology Department at [facility] as part of an ongoing director of quality improvement program and in compliance with federally mandated regulations drawn from the Clinical Laboratory Improvement Act of 1988 (CLIA '88). Some of these tests rely on the use of analyte specific reagents and are subject to specific labeling requirements by the US Food and Drug Administration. Such diagnostic tests may only be performed in a facility that is certified by the Department of Health and Human Services as a high complexity laboratory under CLIA '88. The FDA has determined that such clearance or approval is not necessary. This test is used for clinical purposes. It should not be regarded as investigational or for research. Nevertheless, federal rules concerning the medical use of analyte specific reagents require that the following disclaimer be attached to the report: This test was developed and its performance characteristics determined by the Surgical Pathology Department of [facility]. It has not been cleared or approved by the U. S. Food and Drug Administration. Sidra Mansfield NP LAB CYTOLOGY ORDERABLES Final Result PATHOLOGY [facility] * Colonoscopy (01/07/2024) Anatomical Region Laterality Modality Other 01/07/2024 [facility] Provider ENDOSCOPY PROCEDURES Marj l Result * Hepatitis C antibody Blood (03/20/2023 12:27 PM DIETITIAN TEACHING) Hep C Ab Nonreactive Nonreactive [facility] (AGENCY) Comment: Interpretive Data Nonreactive: Antibodies to HCV not detected. Does NOT exclude the possibility of recent exposure to HCV. Equivocal: Equivocal for HCV antibodies. Supplemental molecular testing will be automatically performed to determine infection status in accordance with current CDC screening recommendations. Reactive: Positive for HCV antibodies. This may represent current or past HCV infection. Supplemental molecular testing will be automatically performed to determine current infection status in accordance with current CDC screening recommendations. Interpretive data was last revised on 2019. Testing performed by: [facility], [address] [place] [address]., [id number] Blood 03/20/2023 12:2 7 PM DIETITIAN TEACHING 03/20/2023 4:14 PM DIETITIAN TEACHING Dain SCHULTZ LAB MICROBIOLOGY - GENERAL ORDCandido BARAJAS Final Result [facility] (AGENCY) [address] [facility] Department [place] [address] * (ABNORMAL) Screening Mammogram Bilateral W Saravanan (03/10/2020 2:18 PM DIETITIAN TEACHING) Anatomical Region Laterality Modality Breast Bilateral Mammography 03/10/2020 3:43 PM DIETITIAN TEACHING Impressions 03/10/2020 3:47 PM DIETITIAN TEACHING 1. Focal asymmetry within the medial and inferior left breast at posterior depth. Further evaluation with spot compression and true lateral views with possible ultrasound is recommended. 2. There is no mammographic evidence of malignancy within the right breast. BI-RADS: 0 - Additional imaging evaluation is necessary. Electronically signed by: Celeste Flores MD Narrative 03/10/2020 3:47 PM DIETITIAN TEACHING EXAMINATION: SCREENING MAMMOGRAM BILATERAL W SARAVANAN ORDERING HEALTHCARE PROVIDER: SELF SCREENING MAMMOGRAM HISTORY: Routine screening mammography. COMPARISON: 02/10/2019, 10/29/2017 and 04/19/2016 TECHNIQUE: CC and MLO views of the bilateral breasts were obtained with digital technique using breast tomosynthesis with C view. Computer aided detection was utilized. FINDINGS: DENSITY: The tissue of the bilateral breasts is heterogeneously dense, which may obscure small masses. BREASTS: There is a focal asymmetry within the medial and inferior left breast at posterior depth. There are no suspicious masses, suspicious calcifications, or other suspicious findings in the right breast. us Self Screening Mammogram IMG MAMMO PROCEDURES Fi nal Result from Last 3 Months or Most Recently Relevant to Health Maintenance Insurance MEDICARE [facility] Address: [address] [address] [employer] MEDICARE [facility] Beddit [facility] Advance Directives For more information, please contact: [phone] Documents on File Type Date Recorded Patient Regional Sales Leader Expl anation ADVANCE DIRECTIVE 07/05/2018 8:50 AM POWER OF REGIONAL ENGAGEMENT CONSULTANT-MEDICAL * Full Code (Latest Code Status on File) Date Activated Date Inactivated Comments 01/07/2024 9:00 AM 01/07/2024 3:48 PM * Full Code Date Activated Date Inactivated Comments 01/07/2024 9:00 AM 01/07/2024 9:00 AM * Full Code Date Activated Date Inactivated Comments 03/27/2022 6:52 PM 03/29/2022 6:01 PM * Full Code Date Activated Date Inactivated Comments 08/25/2021 5:46 PM 08/28/2021 3:31 PM * Full Code Date Activated Date Inactivated Comments 03/19/2020 11:53 AM 03/22/2020 4:37 AM Care Teams Backwinder Relationship Specialty Start Date End Date Sidra Mansfield, LOOM FIXER SUPERVISOR [facility] [address] PCP - General Family Medicine 12/25/23 Sirena Germain LOOM FIXER SUPERVISOR [address] [place] [address] [address] [place] [address] 04/18/18 Rishi Whitaker MD [address] [place] [address] MEDICAL ONCOLOGY, [facility] [address] [place] [address] Consulting Physician Hematology and Oncology 08/11/22
--- OUTSIDE RECORDS SUMMARY | 2025-01-17 14:31 | XMS_ITS | Encounter Summary ---
Author Organization [facility] Address [address] [facility] [address] [place] [address] Phone Care Team Providers Care Fish Hatchery Inspector Name Role Phone Sirena Germain JOB PRINTER APPRENTICE Unavailable [phone] Dain Mckeon Primary Care Provider [phone] Gomez Larsen MD PhD Unavailable [phone] Perico River MD, Mega Unavailable +- [phone] Jeana Linton JOB PRINTER APPRENTICE Unavailable [phone] Rishi Whitaker MD Unavailable [phone] Sidra Mansfield JOB PRINTER APPRENTICE Primary Care Provider [phone] Sidra Mansfield JOB PRINTER APPRENTICE Primary Care Provider [phone] Encounter Details Date Type Department Care Team (Latest Contact Info) Description 05/14/2020 Orders Only [facility] Scanning, Provider Social History Tobacco Use Types Packs/Day Years Used Date Smoking Tobacco: Never Smokeless Tobacco: Never Alcohol Use Standard Drinks/Week Comments Yes 0 (1 standard drink = 0.6 oz pur e alcohol) occassional AUDIT-C Answer Date Recorded Q1: How often do you have a drink containing alc ohol? Never 05/12/2020 Average Number of Drinks Not on file 021 Frequency of Binge Drinking Not on file 08/2020 PHQ-2 Answer Date Recorded PHQ-2 Total Score (If total score is 3 or more points, staff should administer the PHQ-9) 1 01/06/2020 Comments No Sex and Gender Information Value Date Recorded Sex Assigned at Not on file Legal Sex Female 4:12 PM OPHTHALMIC NURSE Gender Identity Female 05/18/2020 5:32 PM CDT Sexual Orientation Straight 12/23/2019 3: 46 PM OPHTHALMIC NURSE documented as of this encounter Plan of Treatment Not on file documented as of this encounter Procedures Procedure Name Priority Date/Time Associated Diagnosis Comments SCAN - LABS 05/14/2020 documented in this encounter Results * SCAN - LABS (05/14/2020) us Provider Scanning Edited Result - Final documented in this encounter Visit Diagnoses Not on filedocumented in this encounter Care Teams Fish Hatchery Inspector Relationship Specialty Start Date End Date Dain Mckeon PA [address] [place] [address] [place] [address] PCP - General Family Medicine 01/06/20 11/18/23 Sidra Mansfield, JOB PRINTER APPRENTICE [address] [place] [address] PCP - General Family Medicine 11/19/23 12/24/23 Sidra Mansfield, ALICIA [address] [place] [address] PCP - General Family Medicine 12/25/23 Sirena Germain NP [address] [place] [address] [place] [address] 04/18/18 Gomez Larsen MD PhD [address] [place] [address] [place] [address] Medical Oncologist/Security System Analyst Medical Oncology 08/10/20 02/23/21 Mega River Jr., MD [address] [place] [address] [address] [place] [address] Medical Oncologist/Security System Analyst Medical Oncology 02/24/21 03/28/22 Jeana Linton NP [address] [place] [address] [id number] Nurse Practitioner Medical Oncology 03/29/22 08/10/22 Rishi Whitaker MD [address] [place] [address] MEDICAL ONCOLOGY, [address] [id number] Consulting Physician Hematology and Oncology 08/11/22 documented as of this encounter
--- OUTSIDE RECORDS SUMMARY | 2025-01-17 14:32 | XMS_ITS | Encounter Summary ---
Author Organization [facility] Address [address] [place] [address] Care Team Providers Care Cable Respooler Name Role Phone Sirena Germain NEGOTIATOR Unavailable [phone] Dain Mckeon Primary Care Provider [phone] Gomez Larsen MD PhD Unavailable Perico River MD, Mega Unavailable [phone]- [phone] Jeana Linton NEGOTIATOR Unavailable [phone] Rishi Whitaker MD Unavailable [phone] Sidra Mansfield NEGOTIATOR Primary Care Provider [phone] Sidra Mansfield NEGOTIATOR Primary Care Provider Encounter Details Date Type Department Care Team (Late st Contact Info) Description 12/19/2019 Telephone [facility] [address] [place] [address] Cynthia Ngo, RT Social History Tobacco Use Types Packs/Day Years Used Date Smoking Tobacco: Never Smokeless Tobacco: Never Alcohol Use Standard Drinks/Week Comments Yes 0 (1 standard drink = 0.6 oz pur e alcohol) occassional PHQ-2 Answer Date Recorded PHQ-2 Score 1 09/27/2018 Comments No Sex and Gender Information Value Date Recorded Sex Assigned at Not on file Legal Sex Female 4:12 PM SYSTEM OPERATION SUPERINTENDENT Gender Identity Female 05/18/2020 5:32 PM CDT Sexual Orientation Straight 12/23/2019 3: 46 PM SYSTEM OPERATION SUPERINTENDENT documented as of this encounter Plan of Treatment Not on file documented as of this encounter Visit Diagnoses Not on filedocumented in this encounter Care Teams Cable Respooler Relationship Specialty Start Date End Date Dain Mckeon PA [address] [place] [address] PCP - General Family Medicine 01/06/20 11/18/23 Sidra Mansfield, NEGOTIATOR [address] [place] [address] [id number] PCP - General Family Medicine 11/19/23 12/24/23 Sidra Mansfield, NEGOTIATOR [address] [place] [id number] PCP - General Family Medicine 12/25/23 Sirena Germain NP [address] [place] [address] [place] [address] 04/18/18 Gomez Larsen MD PhD [address] [place] [address] [place] [address] Medical Oncologist/Laborer Mine Medical Oncology 08/10/20 02/23/21 Mega River Jr., MD [address] [place] [address] [place] [address] Medical Oncologist/Laborer Mine Medical Oncology 02/24/21 03/28/22 Jeana Linton, NEGOTIATOR [address] [place] [address] [address] [facility] [address] [place], [place] [address] Nurse Practitioner Medical Oncology 03/29/22 08/10/22 Rishi Whitaker MD [address] [place] [address] MEDICAL ONCOLOGY, [address] [id number] Consulting Physician Hematology and Oncology 08/11/22 documented as of this encounter
[2025-01-17 14:46] VITALS: BP 132/76; PULSE 84; RESP 18; TEMP 36.6; O2SAT 99
--- NOTE | 2025-01-17 15:09 | ED_ITS ---
HPI - URI/Sore Throat General Chief Complaint: Upper Respiratory Infection Stated Complaint: cold/flu symptoms Time Seen by Provider: 01/17/25 14:52 Source: patient and RN notes reviewed Mode of arrival: ambulatory Limitations: no limitations History of Present Illness HPI Narrative: 59-year-old female patient presents today complaining of a 2 day history of body aches, dry cough, diarrhea, fatigue, headache that is worse after coughing. Denies shortness of breath or chest pain. She has been taking Mucinex and Tylenol with some improvement and currently rates her discomfort 08/14. Reports history of asthma. 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 States she was exposed over a week ago to influenza a by her sister. Related Data Home Medications ?Medication ?Instructions ?Recorded ?Confirmed ?Last Taken ?Type bupropion HCl 150 mg 24 hr tablet, mg PO 01/17/25 Unk nown History extended release cyanocobalamin (vitamin B-12) mcg 01/17/25 Unknown Hi story 1,000 mcg/mL injection solution dextroamphetamine-amphetamine 20 01/17/25 Unknown Hi story mg tablet gabapentin 600 mg tablet mg 01/17/25 Unknown History Allergies Allergy/AdvReac Type Severity Reaction Status Date / Time codeine AdvReac Intermediate Nausea Verified 01/17/25 14:49 PMFSH Family History Family History (Updated 09/03/15 @ 23:19 by DOCTOR UNKNOWN) Grandparent Family history of mental disorder Family history of dementia Family history of heart disease in male family member before age 55 Father Family history of Alzheimer's disease Family history of heart disease in male family member before age 55 Mother Family history of diabetes mellitus in first degree relative Family history of heart disease in male family member before age 55 Sibling Family history of diabetes mellitus in first degree relative Family history of malignant neoplasm of breast in first degree relative Social History Social History Smoking status: Never smoker Alcohol intake: never Comments At time of signature, I have reviewed and agree with nursing past medical, surgical, social and family history unless otherwise noted. Please see nursing chart for further information. There is no relevant family history pertinent to the presenting complaint Exam Narrative: GENERAL: Mildly ill-appearing, well-nourished, and in no acute distress. HEAD: Normocephalic, atraumatic. EYES: EOMI. No redness or drainage. Conjunctivae normal. ENT: Mucous membranes pink and moist. Nares congested with rhinorrhea. TMs normal bilaterally. Throat normal. Uvula midline. NECK: Normal AROM. Supple. No lymphadenopathy. CHEST: No respiratory distress. Clear to auscultation. HEART: Regular rate and rhythm. No murmur appreciated. EXTREMITIES: Normal range of motion. No edema. SKIN: Warm, dry, no rash. Capillary refill normal. Normal skin turgor. NEURO: No focal deficits. Alert and oriented x3. Gait steady. PSYCH: Normal affect. No signs of depression or anxiety. Course Course Level of Care: Express Care Visit Vital Signs Vital signs: Vital Signs Temperature 97.8 F 01/17/25 14:46 Pulse Rate 84 01/17/25 14:46 Respiratory Rate 18 01/17/25 14:46 Blood Pressure 132/76 01/17/25 14:46 Pulse Oximetry 99 01/17/25 14:46 Oxygen Delivery Room Air 01/17/25 14:46 Temperature 97.8 F 01/17/25 14:46 Pulse Rate 84 01/17/25 14:46 Respiratory Rate 18 01/17/25 14:46 Blood Pressure 132/76 01/17/25 14:46 Pulse Oximetry 99 01/17/25 14:46 Oxygen Delivery Room Air 01/17/25 14:46 Reviewed MDM MDM Narrative Medical decision making narrative: 59-year-old female patient presents today complaining of a 2 day history of body aches, dry cough, diarrhea, fatigue, headache that is worse after coughing. Denies shortness of breath or chest pain. She has been taking Mucinex and Tylenol with some improvement and currently rates her discomfort 7/10. Reports history of asthma. 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 States she was exposed over a week ago to influenza a by her sister. Upon exam, patient is mildly ill appearing, congested with rhinorrhea. COVID-19 positive, influenza negative. Since she does have history of asthma and history of hospitalization with pneumonia, offered prescription for Paxlovid and she would like to try it. Discussed use and side effects. Denies chronic renal issues. Also discussed COVID timeline as well as [id number] medication use and ED precautions. Vital signs stable at this time, and patient is stable for outpatient treatment. Differential Diagnosis Differential Diagnosis: Influenza, COVID-19, URI, asthma exacerbation, pneumonia Lab Data MDM Lab Attestation statement: I personally reviewed the patient's lab results. Lab results narrative: COVID-19 positive. Influenza negative Labs: Lab Results 01/17/25 Range/Units 14:56 POC Influenza A Ag Negative (Negative) POC Influenza B Ag Negative (Negative) POC SARS CoV-2 Ag Positive (Negative) Critical Care Time Critical Care Time Critical Care Time: No Discharge Plan Discharge Clinical Impression: COVID-19 Patient Disposition: Home Condition: Stable Instructions: COVID-19 (Coronavirus Disease 2019) (ED) Additional Instructions: You have tested positive for COVID-19. Please take the Paxlovid as prescribed. Take Mucinex during the day for any chest congestion. You may take the Tessalon Perles at night to help suppress your cough. Rest and stay hydrated. Follow-up with your PCP with any concerns. Go to the ER immediately if symptoms worsen. Patient Language: [place] Prescriptions: New benzonatate 200 mg capsule 200 mg PO TID PRN (Reason: cough) Qty: 20 0RF Paxlovid 300 mg (150 mg x 2)-100 mg tablets,dose pack See Rx Instructions .ROUTE .COMPLEX Qty: 30 0RF Rx Instructions: take TWO 150 mg tablets of nirmatrelvir with ONE 100 mg tablet of ritonavir twice daily for 5 days No Action gabapentin 600 mg tablet cyanocobalamin (vitamin B-12) 1,000 mcg/mL solution dextroamphetamine-amphetamine 20 mg tablet bupropion HCl 150 mg tablet extended release 24 hr PO Follow-up/Referrals: Donal,Sidra Tejeda, EMISSIONS INSPECTOR [Primary Care Provider, [facility]] Time of Disposition: 15:08
[2025-01-17 15:11] LABS: EDCOVIDSCREEN Positive (Negative); EDINFLUASCREEN Negative (Negative); EDINFLUBSCREEN Negative (Negative)
== END 2025-01-17 15:14 | disposition home or self-care (01) ==
PROVIDERS: Emergency Provider Nurse Practitioner; PCP Nurse Practitioner
DX: U07.1 COVID-19 (principal); J45.909 Unspecified asthma, uncomplicated; Z86.2 Personal history of diseases of the blood and blood-forming organs and certain disorders involving the immune mechanism; Z90.10 Acquired absence of unspecified breast and nipple; Z92.21 Personal history of antineoplastic chemotherapy
CPT/HCPCS: 87426; 87804; 99203; G0463